=== PATIENT | female | born 1965 | race Caucasian/White ===

== ENCOUNTER → 2017-03-10 | Outpatient (CLI) | payer OTHER ==
[~2017-03-10] MED LIST: ASPIRIN EC81 MG PO; CARAFATE1 GM PO; DESYREL 50 MG T50 MG PO; LORTAB 7.5-3251 EACH PO; NORVASC 5 MG TAB5 MG PO; OXYBUTYNIN CHLOR5 MG PO; SINGULAIR10 MG PO; SYMBICORT 160-1 INHA INH; ZOLOFT100 MG PO; ZYRTEC10 MG PO
== END ==
LOC: HEART 5 11:11
DX: R06.02 Shortness of breath (principal); R06.01 Orthopnea
CPT/HCPCS: 94010